=== PATIENT | male | born 1955 | race Caucasian/White ===

== ENCOUNTER 2023-08-22 07:01 | Day surgery (SDC) | payer MEDICARE, BC ==
[~2023-08-22 07:01] MED LIST: Sodium Chloride 0.9% 10 ML Syringe FLUSH PRN
[2023-08-22] MEDS ORDERED: Lidocaine 2% 100 MG/5 ML Syringe IVPUSH ONE (07:02)
[2023-08-22] MEDS ORDERED: Propofol 200 MG/20 ML SDV IV ONE (07:02)
[2023-08-22] MEDS: Lactated Ringers 1,000 ML IV SCH (07:53)
[2023-08-22] MEDS: Simethicone Drops 40 MG/0.6 ML 30 ML Bottle ONE (08:18)
[2023-08-22 09:25] VITALS: PULSE 67
[2023-08-22 11:00] VITALS: BP 122/83
== END 2023-08-22 10:17 | disposition home or self-care (01) ==
LOC: FB.SDS 07:01
PROVIDERS: ATTEND Surgery
DX: Z12.11 Encounter for screening for malignant neoplasm of colon (principal); D12.6 Benign neoplasm of colon, unspecified; Z86.010 Personal history of colon polyps; I10 Essential (primary) hypertension; Z79.82 Long term (current) use of aspirin; Z79.899 Other long term (current) drug therapy
CPT/HCPCS: 00811; 45385; 88305; A9270; J2704; J7120